=== PATIENT | female | born 1985 | race Caucasian/White ===

== ENCOUNTER 2023-04-23 08:13 | Outpatient (REF) | payer MEDICAID, SELFPAY ==
[2023-04-23 12:02] LABS: Anion Gap 10 (12-20); Blood Urea Nitrogen 10 mg/dL (9-16); Calcium 9.3 mg/dL (8.4-10.2); Carbon Dioxide 27 mmol/L (22-29); Chloride 102 mmol/L (96-108); Estimated Glomerular Filt Rate > 60; Glucose Random 88 mg/dL (60-115); Potassium 3.9 mmol/L (3.3-5.1); Sodium 135 mmol/L (135-145)
== END 2023-04-23 08:14 | disposition home or self-care (01) ==
LOC: HO.HHCL 08:13
PROVIDERS: Visit Provider Registered Nurse
DX: I10 Essential (primary) hypertension (principal)
CPT/HCPCS: 36415; 80048

== ENCOUNTER 2024-01-01 10:55 | Outpatient (REF) | payer MEDICAID, SELFPAY ==
[2024-01-10 03:14] LABS: HPV mRNA E6/E7 rflx Not Detected (Not Detected)
== END 2024-01-01 10:56 | disposition home or self-care (01) ==
LOC: HO.HHCLNP 10:55
PROVIDERS: Visit Provider Registered Nurse
DX: Z12.4 Encounter for screening for malignant neoplasm of cervix (principal)
CPT/HCPCS: 87624; 88142

== ENCOUNTER 2024-01-09 08:29 | Outpatient (REF) | payer MEDICAID, SELFPAY ==
[2024-01-09 11:24] LABS: MANUAL DIFF FLAG NO
[2024-01-09 11:35] LABS: Basophils Absolute Auto 0.1 X10*3/uL (0.0-0.2); Basophils Percent Auto 0.5 % (0-2); Eosinophils Absolute Auto 0.1 X10*3/uL (0.0-0.4); Eosinophils Percent Auto 0.9 % (0-4); Hematocrit 40.5 % (37.0-47.0); Hemoglobin 13.1 g/dl (12.0-16.0); Imm Gran Abs Auto 0.02 X10*3/uL (0.00-0.03); Imm Gran Pct Auto 0.2 % (0.0-0.4); Lymphocytes Absolute Auto 3.2 X10*3/uL (1.2-4.9); Lymphocytes Percent Auto 33.7 % (20-40); Mean Corpuscular HGB Conc 32.3 g/dl (31.0-35.0); Mean Corpuscular Volume 86.5 fL (80.0-98.0); Mean Platelet Volume 9.6 fL (9.4-12.3); Monocytes Absolute Auto 0.6 X10*3/uL (0.1-1.2); Monocytes Percent Auto 6.5 % (2-11); Neutrophils Absolute Auto 5.6 x10*3/uL (2.0-8.3); Neutrophils Percent Auto 58.2 % (45-73); Platelet Count 415 X10*3/uL (160-400); Red Blood Count 4.68 X10*6/uL (4.20-5.50); Red Cell Distribution Width 12.5 % (11.0-16.0); White Blood Count 9.6 X10*3/uL (4.8-10.8)
[2024-01-09 11:53] LABS: Estimated Average Glucose 114 mg/dL; Hemoglobin A1c % 5.6 % (<6.0)
[2024-01-09 11:53] LABS: Alanine Aminotransferase 18 U/L (0-31); Albumin Level 4.2 g/dL (3.5-5.0); Alkaline Phosphatase 49 U/L (39-117); Anion Gap 11 (12-20); Aspartate Amino Transferase 18 U/L (5-31); Bilirubin Total 0.6 mg/dL (0.0-1.0); Blood Urea Nitrogen 9 mg/dL (9-16); Calcium 9.1 mg/dL (8.4-10.2); Carbon Dioxide 23 mmol/L (22-29); Chloride 106 mmol/L (96-108); Cholesterol 166 mg/dL (<200); Estimated Glomerular Filt Rate > 60; Glucose Random 86 mg/dL (60-115); HDL Cholesterol 60 mg/dL (>40); LDL Cholesterol Calculated 96 mg/dL (<100); Potassium 3.6 mmol/L (3.3-5.1); Sodium 136 mmol/L (135-145); Total Protein 7.6 g/dL (6.5-8.0); Triglycerides 52 mg/dL (<150)
[2024-01-09 12:11] LABS: TSH reflex Free T4 1.32 uIU/mL (0.32-4.0)
[2024-01-10 09:02] LABS: HIV AB/AG Nonreactive (Nonreactive); HIV Num 1 0.04 S/CO (0.00-0.99)
[2024-01-12 16:34] LABS: RPR Rapid Plasma Reagin NON-REACTIVE (NON-REACTIVE)
[2024-01-13 14:58] LABS: HCV Log PCR <1.18 NOT DETECTED Log IU/mL (NOT DETECTED); HepC Viral Load <15 NOT DETECTED IU/mL (NOT DETECTED)
== END 2024-01-09 08:30 | disposition home or self-care (01) ==
LOC: HO.HHCL 08:29
PROVIDERS: Visit Provider Registered Nurse
DX: Z00.00 Encounter for general adult medical examination without abnormal findings (principal)
CPT/HCPCS: 36415; 80053; 80061; 83036; 84443; 85025; 86592; 87389; 87522

== ENCOUNTER 2025-04-21 10:13 | Outpatient (REF) | payer MEDICAID, SELFPAY ==
--- OUTSIDE RECORDS SUMMARY | 2025-04-21 09:15 | XMS_ITS | Encounter Summary ---
Author Organization [employer] Address [address] [place] [address] Care Team Providers Care Top Closer Name Role Phone Shavon Cifuentes Primary Care Provider [phone] Encounter Details Date Type Department Care Team ([facility] st Contact Info) Description 04/21/2025 9:15 AM EDT Office Visit [facility] [address] [place] [address] Shavon Cifuentes FNP [address] [place] [address] Essential hypertension (Primary Dx); Macromastia; Healthcare maintenance; Encounter for immunization Social History Tobacco Use Types Packs/Day Years Used Date Smoking Tobacco: Never Smokeless Tobacco: Never Alcohol Use Standard Drinks/Week Comments Not Currently 0 (1 standard drink = 0.6 oz pur e alcohol) Depression Answer Date Recorded Patient Health Questionnaire-9 Score 0 04/21/2025 Patient Health Questionnaire-9 Score 0 04/21/2025 Last PHQ-9: Questionnaire Data Not on file 0 04/21/2025 Housing Stability Answer Date Recorded What is your housing situation today? I have charlie savage 04/14/[address] you li ve. Do you have problems with any of the following? None of the above 04/14/2025 Food Insecurity Answer Date Recorded Within the past 12 months, y ou worried that your food would run out before you got money to buy more: Never True 04/14/2025 Within the past 12 months,th e food you bought just didn't last and you didn't have enough money to get more: Never True Transportation Answer Date Recorded In the past 12 months, has l ack of transportation kept you from medical appts, meetings, work or from getting things needed for daily living? No 04/14/2025 Utilities Answer Date Recorded In the past 12 months, has t he electric, gas, oil or water company threatened to shut off services in your home? No 04/14/2025 Depression Answer Date Recorded Patient Health Questionnaire-2 Score 0 04/21/2025 Internet Access Answer Date Recorded Internet Access Q1 Yes 04/14/2025 Internet Access Q2 Not on file 04/14/2025 Comments No Sex and Gender Information Value Date Recorded Sex Assigned at Female 06/25/2022 10:15 AM EDT Legal Sex Female 10:15 AM EDT Gender Identity Female 06/25/2022 10:15 AM EDT Sexual Orientation Straight 06/25/2022 10 :15 AM EDT documented as of this encounter Last Filed Vital Signs Vital Sign Reading Time Taken Comments Blood Pressure 134/88 04/21/2025 9:25 AM EDT Pulse 96 04/21/2025 9:25 AM EDT Temperature 36.3 C (97.3 F) 04/21/2025 9:25 AM EDT Respiratory Rate 15 04/21/2025 9:25 AM EDT Oxygen Saturation 100% 04/21/2025 9:25 AM EDT Inhaled Oxygen Concentration - - Weight 76.3 kg (168 lb 3.2 oz) 04/21/2025 9:25 A M EDT Height 147.3 cm (4' 10 ) 04/21/2025 9:25 AM EDT Body Mass Index 35.15 04/21/2025 9:25 AM EDT documented in this encounter Functional Status * Over the past 2 weeks, how often have you been bothered by any of the following problems? Question Answer Date of Assessment Author Patient Health Questionnaire -2 Score 0 04/21/2025 9:28 AM EDT Tyesha Rose MA * Little interest or pleasure in doing things Answer Date of Assessment Author Not at all 04/21/2025 9:28 AM EDT Keren Rose MA * Feeling down, depressed, or hopeless Answer Date of Assessment Author Not at all 04/21/2025 9:28 AM EDT Keren Rose MA * Trouble falling or staying asleep, or sleeping too much Answer Date of Assessment Author Not at all 04/21/2025 9:28 AM Keren Moses MA * Feeling tired or having little energy Answer Date of Assessment Author Not at all 04/21/2025 9:28 AM Keren Moses MA * Poor appetite or overeating Answer Date of Assessment Author Not at all 04/21/2025 9:28 AM Keren Moses MA * Feeling bad about yourself - or that you are a failure or have let yourself or your family down Answer Date of Assessment Author Not at all 04/21/2025 9:28 AM Keren Moses MA * Trouble concentrating on things, such as reading the newspaper or watching television Answer Date of Assessment Author Not at all 04/21/2025 9:28 AM Keren Moses MA * Moving or speaking so slowly that other people could have noticed? Or the opposite - being so fidgety or restless that you have been moving around a lot more than usual. Answer Date of Assessment Author Not at all 04/21/2025 9:28 AM Keren Moses MA * Thoughts that you would be better off or hurting yourself in some way Answer Date of Assessment Author Not at all 04/21/2025 9:28 AM Keren Moses MA * Patient Health Questionnaire-9 Score Answer Date of Assessment Author 0 04/21/2025 9:28 AM Keren Moses MA * Over the last 2 weeks, how often have you been bothered by any of the following problems? Question Answer Date of Assessment Author Feeling nervous, anxious, or on edge 0 04/21/2025 9:30 AM Tyesha Moses MA Not being able to stop or control worrying 0 04/21/2025 9:30 AM Tyesha Moses MA Worrying too much about different things 0 04/21/2025 9:30 AM Tyesha Moses MA Trouble relaxing 0 04/21/2025 9:30 AM Keren Arrieta MA Being so restless that it is hard to sit still 0 04/21/2025 9:30 AM Tyesha Moses MA Becoming easily annoyed or irritable 0 04/21/2025 9:30 AM EDT Tyesha Rose MA Feeling afraid as if somethi ng awful might happen 0 04/21/2025 9:30 AM EDT Tyesha Rose MA MICHAEL-7 Total Score 0 04/21/2025 9:30 AM EDT Keren Rose MA documented as of this encounter Patient Instructions * Patient Instructions* KISHA Joseph - 04/21/2025 9:15 AM EDT Please complete blood work fasting documented in this encounter Plan of Treatment Scheduled Orders Name Type Priority Associated Diagnoses Orde r Schedule Chlamydia/N. Gonorrhoeae RNA, TMA, Urogenitial Microbiology Routine Healthcare maintenance Expected: 04/21/2025, Expires: 04/21/2026 Hepatitis C Viral RNA, Quantitative, Real-Time PCR Lab Routine Healthcare maintenance Expected: 04/21/2025 (Approximate), Expires: 04/21/2026 RPR (Monitor) with Reflex to Titer Lab Routine Healthcare maintenance Expected: 04/21/2025 (Approximate), Expires: 04/21/2026 HIV-1/2 Antigen and Antibodies, Fourth Generation, with Reflexes Lab Routine Healthcare maintenance Expected: 04/21/2025 (Approximate), Expires: 04/21/2026 Albumin, Random Urine W/Creatinine Lab Routine Healthcare maintenance Expected: 04/21/2025 (Approximate), Expires: 04/21/2026 Lipid Panel, Standard Lab Routine Healthcare maintenance Expected: 04/21/2025 (Approximate), Expires: 04/21/2026 Hemoglobin A1c Lab Routine Healthcare maintenance Expected: 04/21/2025 (Approximate), Expires: 04/21/2026 TSH with Reflex to Free T4 Lab Routine Healthcare maintenance Expected: 04/21/2025 (Approximate), Expires: 04/21/2026 Comprehensive Metabolic Panel Lab Routine Healthcare maintenance Expected: 04/21/2025 (Approximate), Expires: 04/21/2026 T-SPOT .TB Lab Routine Healthcare maintenance Expected: 04/21/2025 (Approximate), Expires: 04/21/2026 documented as of this encounter Visit Diagnoses Diagnosis Essential hypertension- Primary Unspecified essential hypertension Macromastia Hypertrophy of breast Healthcare maintenance Encounter for immunization documented in this encounter Additional Health Concerns Assessment Noted Time PHQ-9 Depression Total Score: 0 04/21/20 25 9:28 AM EDT documented as of this encounter Care Teams Top Closer Relationship Specialty Start Date End Date Shavon Cifuentes FNP [address] [place] [address] PCP - General Family Medicine 04/18/22 documented as of this encounter
--- OUTSIDE RECORDS SUMMARY | 2025-04-21 11:00 | XMS_ITS | Encounter Summary ---
Author Organization [employer] Address [address] [facility] [address] [place] [address] Care Team Providers Care Cigar Making Machine Supervisor Name Role Phone Shavon Cifuentes Primary Care Provider [phone] Reason for Visit * Reason Onset Date Comments chart prep 04/20/2025 Encounter Details Date Type Department Care Team ([facility] st Contact Info) Description 04/20/2025 Telephone [facility] MEDICINE [address] [place] [address] Shavon Cifuentes FNP [address] [place] [address] chart prep Social History Tobacco Use Types Packs/Day Years [...] Access Q2 Not on file 04/14/2025 Comments Unknown Sex and Gender Information Value Date Recorded Sex Assigned at Female 06/25/2022 10:15 AM EDT Legal Sex Female 10:15 AM EDT Gender Identity Female 06/25/2022 10:15 AM EDT Sexual Orientation Straight 06/25/2022 10 :15 AM EDT documented as of this encounter Miscellaneous Notes * Telephone Encounter - Anna Dejesus MA - 04/20/2025 11:15 AM EDT Chart Prep Labs: done Images: not applicable Screenings: Not Applicable Vaccines due: Tdap Due, Flu Due, and HPV Referrals: Plastic Surgery Patient has a future appointment office didn't want to inform me of when. Overdue care gaps: Sbirt, PQ9, GAD7, and Disability documented in this encounter Plan of Treatment Not on file documented as of this encounter Visit Diagnoses Not on filedocumented in this encounter Additional Health Concerns Assessment Noted Time PHQ-9 Depression Total Score: 1 01/01/20 24 9:33 AM EDT documented as of this encounter Care Teams Cigar Making Machine Supervisor Relationship Specialty Start Date End Date Shavon Cifuentes FNP [address] [place] [address] PCP - General Family Medicine 04/18/22 documented as of this encounter
--- OUTSIDE RECORDS SUMMARY | 2025-04-21 11:00 | XMS_ITS | Encounter Summary ---
Author Organization [employer] Address [address] [facility] [address] [place] [address] Care Team Providers Care Hospital Orderly Name Role Phone Shavon Cifuentes KISHA Primary Care Provider [phone] Encounter Details Date Type Department Care Team (Latest Contact Info) Description 04/20/2025 Travel Social History Tobacco Use Types Packs/Day Years [...] AM EDT documented as of this encounter Plan of Treatment Not on file documented as of this encounter Visit Diagnoses Not on filedocumented in this encounter Additional Health Concerns Assessment Noted Time PHQ-9 Depression Total Score: 1 01/01/20 24 9:33 AM EDT documented as of this encounter Care Teams Hospital Orderly Relationship Specialty Start Date End Date Shavon Cifuentes FNP [address] [place] [address] PCP - General Family Medicine 04/18/22 documented as of this encounter
--- OUTSIDE RECORDS SUMMARY | 2025-04-21 11:00 | XMS_ITS | Clinical Summary ---
Author Organization [facility] Address [address] [place] [address] Phone Care Team Providers Care Donor Center Technician Name Role Phone Shavon Cifuentes Primary Care Provider [phone] Allergies No known active allergies Medications lisinopril (PRINIVIL,ZESTRI L) 10 MG tablet Take 10 mg by mouth. 12/18/2024 Active Encounters Date Type Department Care Team Description 02/22/2025 1:00 PM EDT Office Visit [facility] [place] [facility] [address] [place] [address] Jadon Ash MD Breast hypertrophy in female (Primary Dx) from Last 3 Months Family History Relation Status Comments Father Mother Social History Tobacco Use Types Packs/Day Years Used Date Smoking Tobacco: Never Tobacco Cessation:Counseling Given: Not Answered Alcohol Use Standard Drinks/Week Comments Not Currently 0 (1 standard drink = 0.6 oz pur e alcohol) Education Answer Date Recorded Are you interested in more education? Not on guy e 09/28/2024 Are you concerned about learning? Not on file 09/28/2024 No 09/28/2024 No 09/28/2024 Digital Access Answer Date Recorded No 09/28/2024 No 09/28/2024 Reliable internet access at home? Not on file 09/28/2024 Device with a working camera? Not on file Comments Unknown Sex and Gender Information Value Date Recorded Sex Assigned at Not on file Legal Sex Female 2:25 PM EST Gender Identity Not on file Sexual Orientation Not on file Last Filed Vital Signs Vital Sign Reading Time Taken Comments Blood Pressure 119/83 02/22/2025 1:01 PM EDT Pulse 106 02/22/2025 1:01 PM EDT Temperature - - Respiratory Rate - - Oxygen Saturation - - Inhaled Oxygen Concentration - - Weight 73.8 kg (162 lb 12.8 oz) 02/22/2025 1:01 PM EDT Height 146.1 cm (4' 9.5 ) 02/22/2025 1:01 PM EDT Body Mass Index 34.62 02/22/2025 1:01 PM EDT Plan of Treatment Upcoming Encounters Date Type Department Care Team (Latest Contact Info) Description 10/21/2025 8:30 AM EST Office Visit [facility] Plastic Surgery [address] [place] [phone] Shavon Shahid PA-C [address] [place] [phone] 03/14/2026 8:30 AM EDT Telemedicine - audio only [facility] [address] [place] [address] Shavon Shahid PA-C [address] [place] [phone] 03/30/2026 Procedure Pass OR Admitting Dept - Virtual Department [address] [place] [phone] 03/30/2026 7:30 AM EDT Hospital Encounter OR Admitting Dept - Virtual Department [address] [place] [address] Jadon Ash MD [address] [place] [phone] 03/30/2026 7:30 AM EDT - 03/30/2026 11:19 AM EDT Surgery OR Admitting Dept - Virtual Department [address] [place] [phone] Jadon Ash MD [address] [place] [address], [address] [place] [phone] [email or web address] REDUCTION BREAST 04/04/2026 10:30 AM EDT Office Visit [facility] [address] [place] [address] Shavon Shahid PA-C [address] [place] [address], [address] [phone] [email or web address] 04/12/2026 10:30 AM EDT Office Visit [facility] [address] [place] [address] Shavon Shahid PA-C [address] [place] [address], [address] [address] [email or web address] Scheduled Procedures Name Priority Associated Diagnoses Date/Ti me REDUCTION BREAST breast hypertrophy 03/30/2026 7:30 AM EDT Health Maintenance Due Date Last Done Comments CREATININE LEVEL 1986 POTASSIUM LEVEL 1986 DEPRESSION SCREENING 1998 HEPATITIS C SCREENING 2004 HIV ONE-TIME SCREENING (18-6 5 YEARS) 2004 SCREENING FOR DIABETES 2021 COVID-19 VACCINE (2023-2 5 season) 2024 Adult Td,Tdap Booster 11/18/2024 11/18/2014 , 07/08/2012 INFLUENZA VACCINE (#1) 2025 PAP SMEAR 12/31/2026 01/01/2024 SMOKING STATUS SCREENING (On ce After 26 Yrs) Completed 02/22/2025 HEPATITIS A VACCINES Aged Out No long er eligible based on patient's age to complete this topic HIB VACCINES Aged Out No longer eligi ble based on patient's age to complete this topic MENINGOCOCCAL VACCINES (ACWY) Aged Out No longer eligible based on patient's age to complete this topic MENINGOCOCCAL VACCINES (B) Aged Out N o longer eligible based on patient's age to complete this topic PNEUMOCOCCAL VACCINES (0-49 years) Aged Out No longer eligible b ased on patient's age to complete this topic Medical Devices Not on file Insurance C3 ACO C3 ACO C3 ACO C3 ACO C3 ACO Care Teams Donor Center Technician Relationship Specialty Start Date End Date Shavon Cifuentes FNP [address] [place] [phone] PCP - General Nurse Practitioner 09/28/24 Additional Source Comments The information contained in this document represents components of the legal health record. It is not the complete legal health record.[facility]
--- OUTSIDE RECORDS SUMMARY | 2025-04-21 11:00 | XMS_ITS | Clinical Summary ---
Author Organization [employer] Address [address] [facility] 7[address] [place] [address] Care Team Providers Care Corporate Law Assistant Name Role Phone Shavon Cifuentes KISHA Primary Care Provider [phone] Allergies No known active allergies Medications lisinopril 10 MG tabletIndication s:Essential hypertension Take 1 tablet (10 mg) by mouth Once per day. 90 tablet 3 12/19/19 25 026 Active polyethylene glycol, PEG, 3350 (MiraLax) 17 GM/SCOOP powder Take 17 g by mouth 2 (two) times a week. Mix with 8 ounces of beverage (water, coffee, juice). Drink within 15 minutes of mixing. 527 g 2 04/21/20 25 026 Active polyethylene glycol, PEG, 3350 (MiraLax) 17 GM/SCOOP powder Take 17 g by mouth 2 (two) times a week. Mix with 8 ounces of beverage (water, coffee, juice). Drink within 15 minutes of mixing. 527 g 2 04/22/20 25 025 Discontinued(Re order (will not trigger notification to Pharmacy)) Active Problems Problem Noted Date Diagnosed Date Essential hypertension 04/09/2023 Assessment & Plan (09/16/2024 5:40 PM EST): Well controlled Cont lisinopril 10mg daily Encouraged to continue with routine physical activity, low salt diet Monitor BP at home, call office if > 140/90 mmHg ED precautions Assessment & Plan (01/04/2024 1:35 PM EDT): Elevated initial and repeat readings in office, increase to lisinopril 10mg daily Encouraged to continue with routine physical activity, low salt diet Monitor BP at home, call office if > 140/90 mmHg ED precautions Assessment & Plan (08/29/2023 10:57 AM EST): Cont lisinopril 5mg daily Encouraged to continue with routine physical activity, low salt diet Monitor BP at home, call office if > 140/90 mmHg ED precautions Assessment & Plan (04/09/2023 6:37 PM EDT): Refill of lisinopril 5mg sent to the pharmacy Encouraged to continue with routine physical activity, low salt diet Monitor BP at home, call office if > 140/90 mmHg ED precautions Healthcare maintenance 04/09/2023 Overview (09/16/2024): -Pap: NILM, HPV neg 01/01/24 -Contraception: Bilateral tubal ligation in 2015 -Mammogram: routine screening at 41 y/o -Last PE: 01/01/24 Assessment & Plan (08/29/2023 10:58 AM EST): Schedule for PE/PAP in November 2023. Follow up sooner as needed. Macromastia 04/09/2023 Assessment & Plan (09/16/2024 5:38 PM EST): Bra size: 36DDD Interested in referral to Plastic Surgery for eval of reduction Requirements for breast reduction surgery by [facility] Plastic Surgery: 3 months without any type of smoking (I.e. cigarettes, marijuana) BMI < 33 No or for past 18 months Clinical notes regarding trial of conservative therapy - such as PT, chiropractic, or other - Completed physical therapy sessions - Referral to Plastic Surgery placed 09/16/24 Assessment & Plan (01/04/2024 1:35 PM EDT): Bra size: 36DDD Interested in referral to Plastic Surgery for eval of reduction Requirements for breast reduction surgery by [facility] Plastic Surgery: 3 months without any type of smoking (I.e. cigarettes, marijuana) BMI < 33 No or for past 18 months Clinical notes regarding trial of conservative therapy - such as PT, chiropractic, or other Will refer to physical therapy for initial conservative management of upper back pain Referral to Plastic Surgery placed Assessment & Plan (04/09/2023 6:42 PM EDT): Bra size: 36DDD Interested in referral to Plastic Surgery for eval of reduction Requirements for breast reduction surgery by [facility] Plastic Surgery: 3 months without any type of smoking (I.e. cigarettes, marijuana) BMI < 33 No or for past 18 months Clinical notes regarding trial of conservative therapy - such as PT, chiropractic, or other Will refer to physical therapy for initial conservative management of upper back pain Resolved Problems Problem Noted Date Diagnosed Date Resolved Date Abnormal uterine bleeding 03/27/2022 Encounters Date Type Department Care Team Description 04/21/2025 9:15 AM EDT Office Visit [facility] [address] [place] [phone] Shavon Cifuentes FNP Essential hypertension (Primary Dx); Macromastia; Healthcare maintenance; Encounter for immunization 04/21/2025 Travel 04/20/2025 Travel 04/20/2025 Telephone [facility] [address] [place] [phone] Shavon Cifuentes FNP chart prep 04/14/2025 Patient Outreach [address] [address] Shavon Cifuentes FNP Pre-visit Planning (SDOH Screening negative and Tobacco screening negative) from Last 3 Months Immunizations Immunization Administration Dates Next Due DTaP / IPV 07/26/1992, 9,03/22/1987,1986,1986 Hep B, Adolescent or Pediatric 05/19/1998,1997 Hep B, Unspecified 11/18/1998 Hib (PRP-T) 03/11/1989 IPV 04/22/1991 Influenza injectable quadriv alent IIV4 with preservative 06/24/2023 Influenza injectable quadriv alent preservative free 07/03/2021,07/06/2020 MMR 04/22/1991,02/15/1988 Tdap 04/21/2025,11/18/2014,07/08/2012 Family History Medical History Relation Name Comments Breast cancer Other Relation Name Status Comments Other Grandmother's s ister Social History Tobacco Use Types Packs/Day Years Used Date Smoking Tobacco: Never Smokeless Tobacco: Never Tobacco Cessation:Counseling Given: Not Answered [...] Orientation Straight 06/25/2022 10 :15 AM EDT Last Filed Vital Signs Vital Sign Reading [...] Mass Index 35.15 04/21/2025 9:25 AM EDT Plan of Treatment Health Maintenance Due Date Last Done Comments HPV Vaccines (1 - 3-dose series) 2001 Influenza Vaccine (#1) 2025 , 07/03/2021, 07/06/2020 COVID-19 Vaccine ( season) 2025 08/22/2023, 06/20/2022, 07/24/2021, Additional history exists Postponed from 04/26/2024 (Patient Refused) Family Planning (PISQ) 09/16/2025 09/16/2024 SDOH Screening 04/14/2026 04/14/2025 Disability Screening 04/20/2026 04/20/2025 Alcohol/Substance Use Screening 04/21/2026 04/21/2025 Depression Screening 04/21/2026 04/21/2025, 04/21/20 Tobacco Screening 04/21/2026 04/21/2025 Pap Smear 12/31/2026 01/01/2024, 07/15/2020 Cervical Cancer Screening 12/31/2028 HPV/Cotest 12/31/2028 01/01/2024 Lipid Panel 01/08/2029 01/09/2024, 02/24, 07/06/2020 DTaP/Tdap/Td Vaccines (9 - Td or Tdap) 04/21/2035 04/21/2025, 11/18/2014, 07/08/2012, Additional history exists Zoster Vaccines (1 of 2) 2036 RSV Patients and Patients Aged 60 years or older (1 - 1-dose 75+ series) 2061 HIB Vaccines Completed 03/11/1989 IPV Vaccines Completed 07/26/1992, 03/27, 03/11/1989, Additional history exists Hepatitis B Vaccines Completed 11/18/1998, 05/19/1998, 04/18/1998 HIV Screening Completed 01/09/2024, 12/20/2021 Hepatitis C Screening Completed 01/09/2024, 022 Hepatitis A Vaccines Aged Out No long er eligible based on patient's age to complete this topic Meningococcal B Vaccine Aged Out No l onger eligible based on patient's age to complete this topic Meningococcal Vaccine Aged Out No krish taylor eligible based on patient's age to complete this topic Pneumococcal Vaccine: Pediatrics (0 to 5 Years) and At-Risk Patients (6 to 49) Years Aged Out No longer eligible based on patient's age to complete this topic RSV under 20 months Aged Out No longe r eligible based on patient's age to complete this topic Rotavirus Vaccines Aged Out No longer eligible based on patient's age to complete this topic Procedures Procedure Name Priority Date/Time Associated Diagnosis Comments HEPATITIS C VIRAL RNA, QUANTITATIVE, REAL-TIME PCR Routine 01/09/2024 9:31 AM EDT Encounter for routine history and physical examination of adult LIPID PANEL, STANDARD Routine 01/09/2024 9:31 AM EDT Encounter for routine history and physical examination of adult HIV 1/2 ANTIGEN/ANTIBODY, FOURTH GENERATION W/RFL Routine 01/09/2024 8:51 AM EDT Encounter for routine history and physical examination of adult HPV MRNA E6/E7 REFLEX TO HPV 16, 18/45 Routine 01/01/2024 10:26 AM EDT PAP SMEAR Routine 01/01/2024 10:26 AM EDT from Last 3 Months or Most Recently Relevant to Health Maintenance Results * Hepatitis C Viral RNA, Quantitative, Real-Time PCR (01/09/2024 9:31 AM EDT) Hepatitis C Viral Load <15 NOT DETECTED NOT DETECTED IU/mL [facility] HCV Log PCR <1.18 NOT DETECTED NOT DETECTED Log IU/mL [facility] Comment:This test was perfor med using Real-Time Polymerase ChainReaction.Reportable Range: 15 IU/mL to 100,000,000 IU/mL(1.18 Log IU/mL to 8.00 Log IU/mL).The analytical performance characteristics of thisassay have been determined by [facility].The modifications have not been cleared or approved bythe FDA. This assay has been validated pursuant to theCLIA regulations and is used for clinical purposes.For more information on this test, go to:http://education.Talentwise/faq/VDI78m7(This link is being provided for informational/educational purposes only.)THIS TEST WAS PERFORMED AT:[facility] [place] [phone] MAGANA MD Blood 01/09/2024 9:31 AM EDT 01/09/2024 11:20 AM EDT us Shavon Cifuentes [employer] LAB BLOOD ORDERABLES Final Res ult [facility] [address] [place] [phone] * Lipid Panel, Standard (01/09/2024 9:31 AM EDT) Triglycerides 52 <150 mg/dL [facility] Comment:Desirable Triglyceri de: less than 150 mg/dLBorderline High Triglyceride 150-199 mg/dLHigh Triglyceride: 200-499 mg/dLVery High Triglyceride: greater than or equal to 5OO mg/dL Cholesterol 166 <200 mg/dL [facility] Comment:Desirable Cholestero l: less than 200 mg/dLBorderline High Cholesterol: 200-239 mg/dLHigh Cholesterol: greater than 239 mg/dL LDL Cholesterol Calculated 96 <100 mg/dL [facility] Comment:Desirable LDL: less than 100 mg/dLNear Optimal/Above Optimal LDL: 110- 129 mg/dLBorderline High LDL: 130-159 mg/dLHigh LDL: 160-189 mg/dLVery High LDL: greater than or equal to 190 mg/dL HDL Cholesterol 60 >40 mg/dL [facility] Comment:Desirable HDL: great er than 40 mg/dL Note: This HDL assay may give artificially low results in patients with liver disease. Blood Venous blood specimen / Unknown 01/09/2024 9:31 AM EDT 01/09/2024 11:20 AM EDT Shavon Cifuentes [facility] LAB BLOOD ORDERABLES Final Res ult Performing Organization Address [facility]/ZIP Co de Phone Number [facility] [address] [place] [phone] * HIV-1/2 Antigen and Antibodies, Fourth Generation, with Reflexes (01/09/2024 8:51 AM EDT) HIV AB/AG Nonreactive Nonreactive [facility] Comment:HIV-1 p24 Ag and/or HIV-1/HIV-2 Ab not detected.A test result that is nonreactive does not exclude thepossibility of exposure to or infection with HIV-1 and/orHIV-2. Nonreactive results in this assay for individualswith prior exposure to HIV-1 and/or HIV-2 may be due toantigen and antibody levels that are below the limit ofdetection of this assay.The [employer] HIV Ag/Ab Combo assay result andsupplemental assay results should be interpreted inconjunction with the patient's clinical presentation,history and other laboratory results. If the results areinconsistent with clinical evidence, additional testing issuggested to confirm the result. Blood Venous blood specimen / Unknown 01/09/2024 8:51 AM EDT 01/09/2024 11:20 AM EDT Shavon Cifuentes [facility] LAB BLOOD ORDERABLES Final Res ult Performing Organization Address [facility]/ZIP Co de Phone Number [facility] [address] [place] [phone] * HPV mRNA E6/E7 w/Reflex to HPV Genotypes 16, 18/45 (01/01/2024 10:26 AM EDT) HPV nRNA E6/E7 Not Detected Not Detected [facility] Comment:Methodology: Transcr iption-Mediated AmplificationThis assay detects E6/E7 viral messenger RNA (mRNA) from 14high-risk HPV types (16,18,31,33,35,39,45,51,52,56,58,59,66,68).Cervical sources are required for HPV testing.If a vaginal source from a patient who has had atotal hysterectomy with removal of cervix wassubmitted, please contact the testing laboratoryfor alternative testing options.For additional information, please refer tohttp://education.Talentwise/faq/MJZ722k3(This link if provided for information/educational purposes only.)THIS TEST WAS PERFORMED AT:[facility] [place] [phone] MAGANA MD HPV mRNA E6/E7 TNP [facility] HPV 16 RNA TNP [facility] HPV 18/45 RNA [facility] 01/01/2024 10:2 6 AM EDT 01/02/2024 9:00 AM EDT us Shavon Cifuentes [facility] LAB CYTOLOGY ORDERABLES Final Result [facility] [address] [place] [phone] * Pap Smear (01/01/2024 10:26 AM EDT) 01/01/2024 10:2 6 AM EDT 01/02/2024 9:00 AM EDT Narrative [facility] - 01/27/2024 6:20 AM EDT ----- ------- Name: Carmella Hare Age/Sex: 38/F : 1985 Unit#: [id number] Attend Dr: Shavon Cifuentes [facility] Re01/01/24 Status: DEP [facility] Disch: ----- ------- SPEC : [id number] RECD: 01/02/24-899 STATUS: [place] NUM: [id number] MARY: 01/01/24-[address]: Shavon Cifuentes [facility] ENTERED: 01/03/24 SP TYPE: Pap Smr OT DR: ORDERED: Pap Smear Interpretation Satisfactory for evaluation. Negative for intraepithelial lesion or malignancy. HPV mRNA E6/E7: NOT DETECTED This assay detects E6/E7 viral messenger RNA (mRNA) from 14 high-risk HPV types (16, 18, 31, 33, 35, 39, 45, 51, 52, 56, 58, 59, 66, 68) HPV testing performed by [facility], [place], [place]. See reference laboratory portion of the EMR for entire report. Clinical Information LMP: 12/18/2023 Previous PAP test: 2019, WNL Material Received ThinPrep-Cervical ----- ------- Signed (signature on file) Cindi Purcell 01/27/24 0620 ----- ------- END OF REPORT Shavon BEARD LAB CYTOLOGY ORDERABLES Final Result [facility] [address] [place] [phone] from Last 3 Months or Most Recently Relevant to Health Maintenance Insurance [employer] Care Teams Corporate Law Assistant Relationship Specialty Start Date End Date Shavon Cifuentes FNP [address] [place] [phone] PCP - General Family Medicine 04/18/22
--- OUTSIDE RECORDS SUMMARY | 2025-04-21 11:00 | XMS_ITS | Clinical Summary ---
Author Organization [facility] Address [address] [place] [address] Care Team Providers Care [place] Program Coordinator Name Role Phone Unavailable Primary Care Provider Unavailabl e Social History Tobacco Use Types Packs/Day Years Used Date Smoking Tobacco: Never Assessed Comments Unknown Sex and Gender Information Value Date Recorded Sex Assigned at Not on file Legal Sex Female 7:32 PM EST Gender Identity Not on file Sexual Orientation Not on file Plan of Treatment Health Maintenance Due Date Last Done Comments DTaP,Tdap,and Td Vaccines (1 - Tdap) 2005 Hepatitis B Vaccines (1 of 3 - 19+ 3-dose series) 2005 Cervical Cancer Screening: P ap Smear 2007 COVID-19 Vaccine ( - 2023-2 5 season) 2024 Depression Screening 08/26/2024 Influenza Vaccine (#1) 2025 HIB Vaccines Aged Out No longer eligi ble based on patient's age to complete this topic HPV Vaccines Aged Out No longer eligi ble based on patient's age to complete this topic Hepatitis A Vaccines Aged Out No long er eligible based on patient's age to complete this topic IPV Vaccines Aged Out No longer eligi ble based on patient's age to complete this topic MMR Vaccines Aged Out No longer eligi ble based on patient's age to complete this topic Meningococcal ACWY Vaccine Aged Out N o longer eligible based on patient's age to complete this topic Meningococcal B Vaccine Aged Out No l onger eligible based on patient's age to complete this topic Pneumococcal Vaccine: Pediat rics (0 to 5 Years) and At-Risk Patients (6 to 49 Years) Aged Out No longer eligible b ased on patient's age to complete this topic RSV Immunization Patients Un nava 20 months Aged Out No longer eligible b ased on patient's age to complete this topic Varicella Vaccines Aged Out No longer eligible based on patient's age to complete this topic
--- OUTSIDE RECORDS SUMMARY | 2025-04-21 11:00 | XMS_ITS | Encounter Summary ---
Author Organization [employer] Address [address] [facility] [address] [place] [address] Care Team Providers Care Student Support Advisor Name Role Phone Shavon Cifuentes KISHA Primary Care Provider [phone] Encounter Details Date Type Department Care Team (Latest Contact Info) Description 04/21/2025 Travel Social History Tobacco Use Types Packs/Day [...] AM EDT documented as of this encounter Functional Status * Over the past 2 weeks, how often have you been bothered by any of the following problems? Question Answer Date of Assessment Author Patient Health Questionnaire -2 Score 0 04/21/2025 9:28 AM Tyesha Moses MA * Little interest or pleasure in doing things Answer Date of Assessment Author Not at all 04/21/2025 9:28 AM Keren Moses MA * Feeling down, depressed, or hopeless Answer Date of Assessment Author Not at all 04/21/2025 9:28 AM Keren Moses MA * Trouble falling or staying asleep, [...] MA Trouble relaxing 0 04/21/2025 9:30 AM EDT Keren You MA Being so restless that it is hard to sit still 0 04/21/2025 9:30 AM Tyesha Moses MA Becoming easily annoyed or irritable 0 04/21/2025 9:30 AM Tyesha Moses MA Feeling afraid as if somethi ng awful might happen 0 04/21/2025 9:30 AM Tyesha Moses MA MICHAEL-7 Total Score 0 04/21/2025 9:30 AM Keren oMses MA documented as of this encounter Plan of Treatment Not on file documented as of this encounter Visit Diagnoses Not on filedocumented in this encounter Additional Health Concerns Assessment Noted Time PHQ-9 Depression Total Score: 0 04/21/20 9:28 AM EDT documented as of this encounter Care Teams Student Support Advisor Relationship Specialty Start Date End Date Shavon Cifuentes FNP [address] [place] [address] PCP - General Family Medicine 04/18/22 documented as of this encounter
[2025-04-21 11:49] LABS: Hemoglobin A1C 137.8815 umol/L; Total Hemoglobin (HGBA1C) 3554.2353 umol/L
[2025-04-21 11:56] LABS: Alanine Aminotransferase 22 U/L (0-31); Albumin Level 4.7 g/dL (3.5-5.0); Alkaline Phosphatase 68 U/L (39-117); Anion Gap 14 (12-20); Aspartate Amino Transferase 26 U/L (5-31); Blood Urea Nitrogen 11 mg/dL (9-16); Calcium 9.8 mg/dL (8.4-10.2); Carbon Dioxide 25 mmol/L (22-29); Chloride 100 mmol/L (96-108); Cholesterol 201 mg/dL (<200); Estimated Glomerular Filt Rate > 60; HDL Cholesterol 67 mg/dL (>40); Potassium 3.9 mmol/L (3.3-5.1); Sodium 135 mmol/L (135-145); Total Protein 8.2 g/dL (6.5-8.0); Triglycerides 63 mg/dL (<150)
[2025-04-21 12:18] LABS: HIV Num 1 0.05 S/CO (0.00-0.99)
[2025-04-23 14:53] LABS: HCV Log PCR <1.18 NOT DETECTED Log IU/mL (NOT DETECTED); HepC Viral Load <15 NOT DETECTED IU/mL (NOT DETECTED)
[2025-04-23 22:28] LABS: TS Negative Control Passed; TS Panel A 1; TS Panel B 0; TS Positive Control Passed; TSpotTB Negative (Negative)
== END 2025-04-21 10:14 | disposition home or self-care (01) ==
LOC: HO.HHCL 10:13
PROVIDERS: PCP Registered Nurse; Visit Provider Registered Nurse
DX: Z00.00 Encounter for general adult medical examination without abnormal findings (principal); Z11.4 Encounter for screening for human immunodeficiency virus [HIV]; Z11.59 Encounter for screening for other viral diseases; Z11.3 Encounter for screening for infections with a predominantly sexual mode of transmission; Z11.1 Encounter for screening for respiratory tuberculosis
CPT/HCPCS: 36415; 80053; 80061; 83036; 84443; 86481; 86592; 87389; 87522